=== PATIENT | male | born 1985 | race Caucasian/White ===

== ENCOUNTER 2022-02-16 12:01 | Emergency (ER) | payer BC ==
[2022-02-16 12:07] LABS: Glucose,Whole Blood 121 mg/dL (70-110)
[2022-02-16] MEDS ORDERED: SODIUM CHLORIDE 0.9% 1,000 ML IV STA (12:08)
[2022-02-16 12:30] LABS: Basophils % (A) 1 %; Eosinophils # (A) 0.1 k/uL (0-0.7); Eosinophils % (A) 3 %; HCT 48.2 % (39.0-53.0); HGB 16.5 gm/dL (13.0-17.5); Lymphocytes # (A) 1.5 k/uL (1.0-4.8); Lymphocytes % (A) 27 %; MCH 31.1 pg (25.0-35.0); MCHC 34.2 g/dL (31.0-37.0); MCV 90.7 fL (80.0-100.0); Mean Platelet Volume 7.6; Monocytes # (A) 0.2 k/uL (0-1.0); Monocytes % (A) 4 %; Neutrophils # (A) 3.5 k/uL (1.3-7.7); Neutrophils % (A) 65 %; Platelet Count 179 k/uL (150-450); RBC 5.31 m/uL (4.30-5.90); RDW 12.9 % (11.5-15.5); WBC 5.4 k/uL (3.8-10.6)
[2022-02-16 12:34] LABS: African American GFR (CKD) >90 (>60 ml/min/1.73 sqM); Anion Gap 7 mmol/L; Blood Urea Nitrogen 14 mg/dL (9-20); Calcium 9.1 mg/dL (8.4-10.2); Carbon Dioxide 25 mmol/L (22-30); Chloride 106 mmol/L (98-107); Glucose 95 mg/dL (74-99); Non-African American GFR(CKD) >90 (>60 ml/min/1.73 sqM); Potassium 3.9 mmol/L (3.5-5.1); Sodium 138 mmol/L (137-145)
--- NOTE | 2022-02-16 12:35 | ED ---
General Adult HPI - General Chief complaint: Overdose Stated complaint: Insulin OD Time Seen by Provider: 02/16/22 12:03 Source: patient, EMS Mode of arrival: EMS Limitations: no limitations - History of Present Illness Initial comments: Dictation was produced using [employer] dictation software. please excuse any grammatical, word or spelling errors. Chief Complaint: 36-year-old male presents to the emergency department for accidental insulin overdose History of Present Illness: 36-year-old male he is a type I diabetic. He is insulin-dependent. She has an insulin pump. Patient states he accidentally injected himself with 200 units of NovoLog. Patient was supposed to be injecting his insulin pump reservoir however unintentionally injected insulin into his subcutaneous tissue. Patient has any suicidal or homicidal ideation. Patient immediately realized this and started to ingest glucose. He did have soda pop prior to coming to the ER. Patient denies any nausea, no diaphoresis. Time of administration was 11:30 PM. The ROS documented in this emergency department record has been reviewed and confirmed by me. Those systems with pertinent positive or negative responses have been documented in the HPI. All other systems are other negative and/or noncontributory. PHYSICAL EXAM: General Impression: Alert and oriented x3, not in acute distress HEENT: Normocephalic atraumatic, extra-ocular movements intact, pupils equal and reactive to light bilaterally, mucous membranes moist. Cardiovascular: Heart regular rate and rhythm Chest: Able to complete full sentences, no retractions, no tachypnea Abdomen: abdomen soft, non-tender, non-distended, no organomegaly Musculoskeletal: Pulses present and equal in all extremities, no peripheral edema Motor: no focal deficits noted Neurological: CN II-XII grossly intact, no focal motor or sensory deficits noted Skin: Intact with no visualized rashes Psych: Normal affect and mood ED course: 36 well-appearing male presents to the emergency department for accidental overdose of Humalog insulin. As upon arrival are within acceptable limits. EMS checked patient's blood sugar and was in the normal range. Upon arrival to the ER his point of care glucose was 121. Patient is eating well. He is not showing any signs of hypoglycemia at the bedside. Recommended to patient to be admitted however he refused he would prefer to work on this in the emergency department and to be discharged. Patient was observed in the emergency department for approximately 7 hours. Patient's glucose is now stable after multiple dextrose pushes and oral intake. Laboratory evaluation obtained. CBC metabolic panel is unremarkable. Initial blood glucose was 121. Patient observed in the emergency department. At 3:15 his blood glucose began to diminish down to 56. Was given dextrose and oral glucose and take. Still continued to be low. At 8:15 his glucose was now 134. Patient reevaluated again at 7:30 PM found to be in stable medical condition his glucose is maintained into the 1:30 range. Patient is well-appearing. Patient is reliable and will be dispositioned with his . Patient has a glucometer. He checked his glucose level with his glucometer and seems to correlate with hours. Patient is agreeable to discharge. Patient is well outside of the duration of action for NovoLog. - Related Data Home Medications Medication Instructions Recorded Confirmed Insulin Aspart (For Pump) [NovoLOG 0.01 unit SQ-PUMP CONTINUOUS 02/16/22 02/16/22 (For Pump)] Allergies Allergy/AdvReac Type Severity Reaction Status Date / Time cefuroxime [From Ceftin] AdvReac Unknown Verified 02/16/22 16:31 Childhood danaparoid,porcine AdvReac Unknown Verified 02/16/22 16:31 [From Orgaran] Childhood sulfamethoxazole AdvReac Unknown Verified 02/16/22 16:31 [From Bactrim] Childhood trimethoprim [From Bactrim] AdvReac Unknown Verified 02/16/22 16:31 Childhood Review of Systems ROS Statement: Those systems with pertinent positive or pertinent negative responses have been documented in the HPI. ROS Other: All systems not noted in ROS Statement are negative. Past Medical History Past Medical History: Diabetes Mellitus History of Any Multi-Drug Resistant Organisms: None Reported Additional Past Surgical History / Comment(s): wisdom teeth Past Psychological History: No Psychological Hx Reported Smoking Status: Never smoker Past Alcohol Use History: Rare Past Drug Use History: None Reported General Exam Limitations: no limitations Course Vital Signs 02/16/22 12:04 Temperature 98.2 F Pulse Rate 82 Respiratory 18 Rate Blood Pressure 153/97 O2 Sat by Pulse 96 Oximetry Medical Decision Making - Lab Data Result diagrams: 02/16/22 12:22 02/16/22 12:22 Lab Results 02/16/22 02/16/22 02/16/22 Range/Units 12:06 12:22 12:22 WBC 5.4 (3.8-10.6) k/uL RBC 5.31 (4.30-5.90) m/uL Hgb 16.5 (13.0-17.5) gm/dL Hct 48.2 (39.0-53.0) % MCV 90.7 (80.0-100.0) fL MCH 31.1 (25.0-35.0) pg MCHC 34.2 (31.0-37.0) g/dL RDW 12.9 (11.5-15.5) % Plt Count 179 (150-450) k/uL MPV 7.6 Neutrophils % 65 % Lymphocytes % 27 % Monocytes % 4 % Eosinophils % 3 % Basophils % 1 % Neutrophils # 3.5 (1.3-7.7) k/uL Lymphocytes # 1.5 (1.0-4.8) k/uL Monocytes # 0.2 (0-1.0) k/uL Eosinophils # 0.1 (0-0.7) k/uL Basophils # 0.0 (0-0.2) k/uL Sodium 138 (137-145) mmol/L Potassium 3.9 (3.5-5.1) mmol/L Chloride 106 (98-107) mmol/L Carbon Dioxide 25 (22-30) mmol/L Anion Gap 7 mmol/L BUN 14 (9-20) mg/dL Creatinine 0.71 (0.66-1.25) mg/dL Est GFR (CKD-EPI)AfAm >90 (>60 ml/min/1.73 sqM) Est GFR (CKD-EPI)NonAf >90 (>60 ml/min/1.73 sqM) Glucose 95 (74-99) mg/dL POC Glucose (mg/dL) 121 H (70-110) mg/dL POC Glu Food Taster ID Marcus, Hien Calcium 9.1 (8.4-10.2) mg/dL 02/16/22 02/16/22 02/16/22 Range/Units 12:40 13:13 14:04 WBC (3.8-10.6) k/uL RBC (4.30-5.90) m/uL Hgb (13.0-17.5) gm/dL Hct (39.0-53.0) % MCV (80.0-100.0) fL MCH (25.0-35.0) pg MCHC (31.0-37.0) g/dL RDW (11.5-15.5) % Plt Count (150-450) k/uL MPV Neutrophils % % Lymphocytes % % Monocytes % % Eosinophils % % Basophils % % Neutrophils # (1.3-7.7) k/uL Lymphocytes # (1.0-4.8) k/uL Monocytes # (0-1.0) k/uL Eosinophils # (0-0.7) k/uL Basophils # (0-0.2) k/uL Sodium (137-145) mmol/L Potassium (3.5-5.1) mmol/L Chloride (98-107) mmol/L Carbon Dioxide (22-30) mmol/L Anion Gap mmol/L BUN (9-20) mg/dL Creatinine (0.66-1.25) mg/dL Est GFR (CKD-EPI)AfAm (>60 ml/min/1.73 sqM) Est GFR (CKD-EPI)NonAf (>60 ml/min/1.73 sqM) Glucose (74-99) mg/dL POC Glucose (mg/dL) 100 117 H 93 (70-110) mg/dL POC Glu Food Taster Carmel Mejia, Carmel Huang Calcium (8.4-10.2) mg/dL 02/16/22 02/16/22 02/16/22 Range/Units 14:46 15:17 16:13 WBC (3.8-10.6) k/uL RBC (4.30-5.90) m/uL Hgb (13.0-17.5) gm/dL Hct (39.0-53.0) % MCV (80.0-100.0) fL MCH (25.0-35.0) pg MCHC (31.0-37.0) g/dL RDW (11.5-15.5) % Plt Count (150-450) k/uL MPV Neutrophils % % Lymphocytes % % Monocytes % % Eosinophils % % Basophils % % Neutrophils # (1.3-7.7) k/uL Lymphocytes # (1.0-4.8) k/uL Monocytes # (0-1.0) k/uL Eosinophils # (0-0.7) k/uL Basophils # (0-0.2) k/uL Sodium (137-145) mmol/L Potassium (3.5-5.1) mmol/L Chloride (98-107) mmol/L Carbon Dioxide (22-30) mmol/L Anion Gap mmol/L BUN (9-20) mg/dL Creatinine (0.66-1.25) mg/dL Est GFR (CKD-EPI)AfAm (>60 ml/min/1.73 sqM) Est GFR (CKD-EPI)NonAf (>60 ml/min/1.73 sqM) Glucose (74-99) mg/dL POC Glucose (mg/dL) 99 56 L 60 L (70-110) mg/dL POC Glu Food Taster MELANY Fonseca, Santi Fonseca, Nilesh Lundy Calcium (8.4-10.2) mg/dL 02/16/22 02/16/22 02/16/22 Range/Units 17:41 18:22 19:12 WBC (3.8-10.6) k/uL RBC (4.30-5.90) m/uL Hgb (13.0-17.5) gm/dL Hct (39.0-53.0) % MCV (80.0-100.0) fL MCH (25.0-35.0) pg MCHC (31.0-37.0) g/dL RDW (11.5-15.5) % Plt Count (150-450) k/uL MPV Neutrophils % % Lymphocytes % % Monocytes % % Eosinophils % % Basophils % % Neutrophils # (1.3-7.7) k/uL Lymphocytes # (1.0-4.8) k/uL Monocytes # (0-1.0) k/uL Eosinophils # (0-0.7) k/uL Basophils # (0-0.2) k/uL Sodium (137-145) mmol/L Potassium (3.5-5.1) mmol/L Chloride (98-107) mmol/L Carbon Dioxide (22-30) mmol/L Anion Gap mmol/L BUN (9-20) mg/dL Creatinine (0.66-1.25) mg/dL Est GFR (CKD-EPI)AfAm (>60 ml/min/1.73 sqM) Est GFR (CKD-EPI)NonAf (>60 ml/min/1.73 sqM) Glucose (74-99) mg/dL POC Glucose (mg/dL) 86 134 H 135 H (70-110) mg/dL POC Glu Food Taster ID [place] Pete Andrew Calcium (8.4-10.2) mg/dL Disposition Clinical Impression: Accidental drug overdose, Hypoglycemia Disposition: HOME SELF-CARE Condition: Good Instructions (If sedation given, give patient instructions): Adult Overdose (ED), What to Do if Your Blood Sugar is Low (ED), Hypoglycemia in a Person with Diabetes (ED) Is patient prescribed a controlled substance at d/c from ED?: No Referrals: None,Stated [Primary Care Provider] - 1-2 days Time of Disposition: 19:26
[2022-02-16 12:41] LABS: Glucose,Whole Blood 100 mg/dL (70-110)
[2022-02-16 13:14] LABS: Glucose,Whole Blood 117 mg/dL (70-110)
[2022-02-16 14:06] LABS: Glucose,Whole Blood 93 mg/dL (70-110)
[2022-02-16] MEDS ORDERED: DEXTROSE 50% SYRINGE 50 ML IVP STA ×2 (14:14→15:34)
[2022-02-16 14:48] LABS: Glucose,Whole Blood 99 mg/dL (70-110)
[2022-02-16 15:18] LABS: Glucose,Whole Blood 56 mg/dL (70-110)
[2022-02-16 16:15] LABS: Glucose,Whole Blood 60 mg/dL (70-110)
[2022-02-16 17:42] LABS: Glucose,Whole Blood 86 mg/dL (70-110)
[2022-02-16 18:24] LABS: Glucose,Whole Blood 134 mg/dL (70-110)
[2022-02-16 19:13] LABS: Glucose,Whole Blood 135 mg/dL (70-110)
[2022-02-16 20:20] VITALS: BP 134/76; PULSE 89; RESP 20; TEMP 98
== END 2022-02-16 19:36 | disposition home or self-care (01) ==
LOC: EC 12:01
DX: T38.3X1A Poisoning by insulin and oral hypoglycemic [antidiabetic] drugs, accidental (unintentional), initial encounter (principal); E16.2 Hypoglycemia, unspecified; Z88.1 Allergy status to other antibiotic agents; Z88.6 Allergy status to analgesic agent; Z88.2 Allergy status to sulfonamides
CPT/HCPCS: 36415; 80048; 85025; 96361; 96374; 96375; 99284